=== PATIENT | female | born 1995 | race African-American/Black ===

== ENCOUNTER 2021-06-25 05:09 | Emergency (ER) | payer MEDICAID ==
[~2021-06-25] VITALS: Ht 165.1 cm; Wt 89.0 kg
[2021-06-25 05:11] VITALS: BP 128/72
[2021-06-25] MEDS ORDERED: KETOROLAC 60MG/2ML VIAL IM ONE (05:30)
== END 2021-06-25 05:30 | disposition home or self-care (01) ==
LOC: ER 05:09
DX: L24.9 Irritant contact dermatitis, unspecified cause (principal); L30.4 Erythema intertrigo; F41.9 Anxiety disorder, unspecified; Z88.0 Allergy status to penicillin
CPT/HCPCS: 99283